=== PATIENT | male | born 1945 | race Caucasian/White ===

== ENCOUNTER → 2016-09-15 | Outpatient (CLI) | payer MEDICARE, OTHER | LOC: RAD 13:26 | PROVIDERS: ATTEND Internal Medicine Cardiovascular Disease | DX: I10 Essential (primary) hypertension (principal); I50.9 Heart failure, unspecified | CPT/HCPCS: 93306 ==

== ENCOUNTER 2016-12-05 11:47 | Emergency (ER) | payer MEDICARE, OTHER ==
[~2016-12-05] VITALS: Ht 182.9 cm; Wt 82.0 kg
[~2016-12-05 11:47] MED LIST: AMIO200T2 PO; ASP81CT; ATOR40TA59 PO; AZTH250C PO; CLOP75TA28 PO; CPR500T; CYAN500T44 PO; FAMO-118 PO; FELO10TA3; FURO40TA4 PO; HYDR-3881; LEVO500T16 PO; LISI5TAB14 PO; METF500T4 PO; METO-270 PO; METO50TA7; OXYC5TAB71 PO; POTA-57 PO; SIMV40TA; SPRN25T PO; TELM1TAB3; ZLP10T PO
--- OUTSIDE RECORDS SUMMARY | 2016-12-05 11:52 | XMS REPORT | Continuity of Care Document ---
Author Author [facility] Address Unknown Phone Unavailable Allergies Active Description Code Type Severity Reaction Onset Reported/Identified Relationship to Patient Clinical Status Yes No Known Allergies No Known Allergies Drug Allergy Unknown N/A 08/18/2015 Yes No Known Drug Allergies No Known Drug Allergies Drug Allergy Unknown NONE 08/18/2015 Yes No Known Drug Allergies [id number] Drug Allergy Unknown N/ A 09/25/2015 Medications Problems Date Dx Coded Attending Type Code Diagnosis Diagnosed By 11/19/2012 Viridiana Marsh MD 185 MALIGN NEOPL PROSTATE 11/19/2012 Viridiana Marsh MD 250.00 DIAB SRINIVAS WO COMPL, TYPE II OR UNSPEC TYPE, NOT UN 11/19/2012 Viridiana Marsh MD 272.4 HYPERLIPIDEMIA NEC/NOS 11/19/2012 Viridiana Marsh MD 285.9 ANEMIA NOS 11/19/2012 Viridiana Marsh MD 401.9 HYPERTENSION NOS 11/19/2012 Viridiana Marsh MD 410.71 AC MYOCARDIAL INFARCT,SUBENDO INFARCT, INITIAL EPIS 11/19/2012 Viridiana Marsh MD 414.01 CORONARY ATHEROSCLEROSIS OF [place] CORONARY VESSEL 11/19/2012 Viridiana Marsh MD 426.4 RT BUNDLE BRANCH BLOCK 11/19/2012 Viridiana Marsh MD 607.84 IMPOTENCE, ORGANIC ORIGN 11/19/2012 Viridiana Marsh MD 997.1 SURG COMPL-HEART 11/19/2012 Viridiana Marsh MD E849.7 ACCID IN RESIDENT INSTIT 11/19/2012 Viridiana Marsh MD E878.6 ABN REAC-ORGAN REM NEC 11/19/2012 Viridiana Marsh MD V12.51 HX-VENOUS THROMBOSIS EMBOLISM 11/19/2012 Viridiana Marsh MD V16.42 FAM HX-MAL NEOP-PROSTATE 11/19/2012 Viridiana Marsh MD V45.82 PERCUTANEOUS TRANSLUM CORON ANGIOPLASTY STATUS 01/27/2013 Ot 786.52 PAINFUL RESPIRATION 01/27/2013 Ot 786.59 CHEST PAIN NEC 09/19/2013 WILL PERDOMO, KELLI P Ot 372.30 CONJUNCTIVITIS NOS 09/19/2013 KELLI SOLIS MD Ot 379.93 REDNESS/DISCHARGE OF EYE 11/27/2013 GISSELL KAY MD, RAUL Danielson 715.16 LOC PRIM OSTEOART-L/LEG 11/27/2013 RAUL BORRERO II, MD V43.65 KNEE JOINT REPLACEMENT 11/27/2013 RAUL BORRERO II, MD V58.61 ANTICOAGULANT USE LONG T 12/04/2013 RAUL BORRERO II, MD 715.16 LOC PRIM OSTEOART-L/LEG 12/04/2013 RAUL BORRERO II, MD V43.65 KNEE JOINT REPLACEMENT 12/04/2013 RALU BORRERO II, MD V58.61 ANTICOAGULANT USE LONG T 12/11/2013 RAUL BORRERO II, MD 715.16 LOC PRIM OSTEOART-L/LEG 12/11/2013 RAUL BORRERO II, MD V43.65 KNEE JOINT REPLACEMENT 12/11/2013 RAUL BORRERO II, MD V58.61 ANTICOAGULANT USE LONG T 12/18/2013 RAUL BORRERO II, MD 715.16 LOC PRIM OSTEOART-L/LEG 12/18/2013 RAUL BORRERO II, MD V43.65 KNEE JOINT REPLACEMENT 12/18/2013 RAUL BORRERO II, MD V58.61 ANTICOAGULANT USE LONG T 12/21/2013 RAUL BORRERO II, MD 719.7 DIFFICULTY IN WALKING 12/21/2013 RAUL BORRERO II, MD 728.87 MUSCLE WEAKNESS 12/21/2013 RAUL BORRERO II, MD V43.65 KNEE JOINT REPLACEMENT 01/20/2014 RAUL BORRERO II, MD 719.7 DIFFICULTY IN WALKING 01/20/2014 RAUL BORRERO II, MD V43.65 KNEE JOINT REPLACEMENT 04/08/2014 BAILEE PERDOMO, JESSICA Atkinson Ot 250.00 DIAB SRINIVAS WO COMPL, TYPE II OR UNSPEC TY 04/08/2014 BAILEE PERDOMO, JESSICA Atkinson Ot 729.5 PAIN IN LIMB 04/08/2014 JESSICA MOROCHO MD Ot 729.81 SWELLING OF LIMB 04/08/2014 JESSICA MOROCHO MD Ot V12.51 HX-VENOUS THROMBOSIS EMBOLISM 04/08/2014 JESSICA MOROCHO MD Ot V58.66 LONG-TERM (CURRENT) USE OF ASPIRIN 08/31/2014 JACOB PERDOMO, DARSHAN Burks Ot 250.02 DIAB SRINIVAS WO COMPL, TYPE II OR UNSPEC TY 08/31/2014 JACOB PERDOMO, DARSHAN Burks Ot 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 06/16/2015 FRIDA JOSÉ DO Ot 414.00 06/16/2015 FRIDA JOSÉ DO Ot V81.2 06/16/2015 JESSICA MOROCHO MD Ot 453.40 06/16/2015 DARSHAN JAMES MD Ot 250.02 06/16/2015 DARSHAN JAMES MD Ot V65.3 06/16/2015 ANDREW TEMPLE MD S Ot E78.5 07/09/2015 ANDREW TEMPLE MD S Ot E78.5 08/23/2015 Ot E11.9 TYPE 2 DIABETES MELLITUS WITHOUT COMPLIC 08/23/2015 Ot I10 ESSENTIAL (PRIMARY) HYPERTENSION 08/23/[address] ELEVATION (STEMI) MYOCARDIAL INFARCTI 08/23/2015 Ot R07.89 OTHER CHEST PAIN 08/23/2015 Ot Z95.818 PRESENCE OF OTHER CARDIAC IMPLANTS AND G 09/04/2015 ANDREW TEMPLE I2109 STEMI involving oth coronary artery of anterior wall 09/04/[address] elevation (STEMI) myocardial infarction of [facility] site 09/05/2015 ANDREW TEMPLE E1165 Type 2 diabetes mellitus with hyperglycemia 09/05/2015 ANDREW TEMPLE E785 Hyperlipidemia, unspecified 09/05/2015 ANDREW TEMPLE I10 Essential (primary) hypertension 09/05/2015 ANDREW TEMPLE I2109 STEMI involving oth coronary artery of anterior wall 09/05/[address] elevation (STEMI) myocardial infarction of [facility] site 09/05/2015 ANDREW TEMPLE [id number] Athscl heart disease of [place] cor art w [facility] ang pctrs 09/05/2015 ANDREW TEMPLE K7200 Acute and subacute hepatic failure without coma 09/05/2015 ANDREW TEMPLE N179 Acute kidney failure, unspecified 09/05/2015 ANDREW TEMPLE R570 Cardiogenic shock 09/05/2015 ANDREW TEMPLE Z8546 Personal history of malignant neoplasm of prostate 09/05/2015 ANDREW TEMPLE Z955 Presence of coronary angioplasty implant and graft 09/18/2015 Ot I21.3 09/25/2015 JACOB PERDOMO, DARSHAN Burks Ot 250.02 09/25/2015 JACOB PERDOMO, DARSHAN Burks Ot V65.3 09/25/2015 CEDRIC SARGENT DO Ot E11.9 TYPE 2 DIABETES MELLITUS WITHOUT COMPLIC 09/25/2015 CEDRIC SARGENT DO Ot I10 ESSENTIAL (PRIMARY) HYPERTENSION 09/25/2015 CEDRIC SARGENT DO, Ot I25.10 ATHSCL HEART DISEASE OF [place] CORONARY 09/25/2015 CEDRIC SARGENT DO, Ot I50.9 HEART FAILURE, UNSPECIFIED 09/25/2015 CEDRIC SARGENT DO, Ot J18.9 PNEUMONIA, UNSPECIFIED ORGANISM 09/25/2015 CEDRIC SARGENT DO Ot R07.89 OTHER CHEST PAIN 09/25/2015 CEDRIC SARGENT DO, Ot Z95.5 PRESENCE OF CORONARY ANGIOPLASTY IMPLANT 11/04/2015 JESUS OMER E119 Type 2 diabetes mellitus without complications 11/04/2015 JESUS OMER E785 Hyperlipidemia, unspecified 11/04/2015 JESUS OMER I129 Hypertensive chronic kidney disease w stg 1-4/ unsp chr kdny 11/04/2015 JESUS OMER I2510 Athscl heart disease of [place] coronary artery w/o ang pctrs 11/04/2015 JESUS OMER I4519 Other right bundle-branch block 11/04/2015 JESUS OMER I5023 Acute on chronic systolic (congestive) heart failure 11/04/2015 JESUS OMER I509 Heart failure, unspecified 11/04/2015 JESUS OMER K219 Gastro-esophageal reflux disease without esophagitis 11/04/2015 JESUS OMER N183 Chronic kidney disease, stage 3 (moderate) 11/04/2015 JESUS OMER Z794 [facility] (current) use of insulin 11/04/2015 JESUS OMER Z955 Presence of coronary angioplasty implant and graft 12/01/2015 ANDREW TEMPLE MD S Ot I50.42 CHRONIC COMBINED SYSTOLIC AND DIASTOLIC 12/01/2015 ANDREW TEMPLE MD S Ot I50.42 CHRONIC COMBINED SYSTOLIC AND DIASTOLIC 12/05/2015 ANDREW TEMPLE MD S Ot I50.42 CHRONIC COMBINED SYSTOLIC AND DIASTOLIC 12/09/2015 ANDREW TEMPLE MD S Ot I50.42 CHRONIC COMBINED SYSTOLIC AND DIASTOLIC 12/25/2015 ANDREW TEMPLE MD S Ot I50.42 CHRONIC COMBINED SYSTOLIC AND DIASTOLIC 03/21/2016 NIXON PERDOMO, SUKUMAR Ot J22 UNSPECIFIED ACUTE LOWER RESPIRATORY INFE 03/21/2016 NIXON PERDOMO, SUKUMAR Ot R07.89 OTHER CHEST PAIN 03/21/2016 NIXON PERDOMO, SUKUMAR Ot R09.1 PLEURISY 03/25/2016 NIXON PERDOMO, SUKUMAR Ot J22 UNSPECIFIED ACUTE LOWER RESPIRATORY INFE 03/25/2016 NIXON PERDOMO, SUKUMAR Ot R07.89 OTHER CHEST PAIN 03/25/2016 NIXON PERDOMO, SUKUMAR Ot R09.1 PLEURISY 03/27/2016 NIXON PERDOMO, SUKUMAR Ot J22 UNSPECIFIED ACUTE LOWER RESPIRATORY INFE 03/27/2016 NIXON PERDOMO, SUKUMAR Ot R07.89 OTHER CHEST PAIN 03/27/2016 NIXON PERDOMO, SUKUMAR Ot R09.1 PLEURISY 09/15/2016 WINDY PERDOMO, ANDREW Simons Ot I10 ESSENTIAL (PRIMARY) HYPERTENSION 09/15/2016 FRIDA JOSÉ DO Ot 414.00 CORON ATHEROSCLER NOS TYPE VESSEL, NATIV 09/15/2016 FRIDA JOSÉ DO Ot V81.2 SCREEN-CARDIOVASC NEC 09/15/2016 BAILEE PERDOMO, JESSICA Atkinson Ot 453.40 ACUTE VENOUS EMBOLISM THROMBOSIS UNSP 09/15/2016 JACOB PERDOMO, DASRHAN Burks Ot 250.02 DIAB SRINIVAS WO COMPL, TYPE II OR UNSPEC TY 09/15/2016 JACOB PERDOMO, DARSHAN Burks Ot 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 09/15/2016 ANDREW TEMPLE MD Ot E78.5 HYPERLIPIDEMIA, UNSPECIFIED 09/15/[address] ELEVATION (STEMI) MYOCARDIAL INFARCTI 09/15/2016 MATTAR MD, COSTY S Ot I50.42 CHRONIC COMBINED SYSTOLIC AND DIASTOLIC 09/15/2016 WINDY PERDOMO COSTRachid S Ot I10 ESSENTIAL (PRIMARY) HYPERTENSION 09/16/2016 WINDY PERDOMO COSTRachid S Ot I10 ESSENTIAL (PRIMARY) HYPERTENSION 09/22/2016 WINDY PERDOMO COSTRachid S Ot I10 ESSENTIAL (PRIMARY) HYPERTENSION 09/22/2016 ANDREW TEMPLE MD S Ot I50.9 HEART FAILURE, UNSPECIFIED 09/26/2016 ANDREW TEMPLE MD S Ot I10 ESSENTIAL (PRIMARY) HYPERTENSION 09/26/2016 ANDREW TEMPLE MD S Ot I50.9 HEART FAILURE, UNSPECIFIED 10/11/2016 ANDREW TEMPLE MD S Ot I10 ESSENTIAL (PRIMARY) HYPERTENSION 10/11/2016 ANDREW TEMPLE MD S Ot I50.9 HEART FAILURE, UNSPECIFIED 11/29/2016 ANDREW TEMPLE MD S Ot I10 ESSENTIAL (PRIMARY) HYPERTENSION 11/29/2016 ANDREW TEMPLE MD S Ot I50.9 HEART FAILURE, UNSPECIFIED Procedures Code Description Performed By Performed On LAPAROSCOPIC ROBOTIC ASSISTED PROCEDURE Salma PERODMO, Viridiana Erickson 11/19/2012 40.29 SIMP EXC LYMPH STRUC ASHELY Marsh MD, Viridiana Erickson 11/19/2012 60.5 RADICAL PROSTATECTOMY Viridiana Marsh MD 11/19/2012 60.69 PROSTATECTOMY Viridiana Montgomery MD 11/19/2012 78896 PT EVALUATION RAUL BORRERO II, MD 11/25/2013 47401 THERAPEUTIC EXERCISES RAUL BORRERO II, MD 11/25/2013 63865 GAIT TRAINING THERAPY RAUL BORRERO II, MD 11/25/2013 22459 ROUTINE VENIPUNCTURE RAUL BORRERO II, MD 11/27/2013 62012 PROTHROMBIN TIME RAUL BORRERO II, MD 11/27/2013 67782 THERAPEUTIC EXERCISES RAUL BORRERO II, MD 11/27/2013 35070 THERAPEUTIC EXERCISES RAUL BORRERO II, MD 11/29/2013 18405 GAIT TRAINING THERAPY RAUL BORRERO II, MD 11/29/2013 75357 THERAPEUTIC EXERCISES RAUL BORRERO II, MD 12/02/2013 G0283 ELEC STIM OTHER THAN WOUND RAUL BORRERO II, MD 12/02/2013 96815 ROUTINE VENIPUNCTURE RAUL BORRERO II, MD R 12/04/2013 58259 PROTHROMBIN TIME GISSELL KAY MD, [facility] 12/04/2013 23451 THERAPEUTIC EXERCISES GISSELL KAY MD, [facility] 12/04/2013 G0283 ELEC STIM OTHER THAN WOUND GISSELL KAY MD, [facility] 12/04/2013 07333 THERAPEUTIC EXERCISES GISSELL KAY MD, [facility] 12/06/2013 26483 THERAPEUTIC ACTIVITIES GISSELL KAY MD , RAUL Shaun 12/06/2013 G0283 ELEC STIM OTHER THAN WOUND GISSELL KAY MD, [facility] 12/06/2013 13064 THERAPEUTIC EXERCISES GISSELL KAY MD, [facility] 12/09/2013 G0283 ELEC STIM OTHER THAN WOUND GISSELL KAY MD, [facility] 12/09/2013 61046 PROTHROMBIN TIME GISSELL KAY MD, [facility] 12/11/2013 22586 THERAPEUTIC EXERCISES GISSELL KAY MD, [facility] 12/11/2013 52037 MANUAL THERAPY GISSELL KAY MD, [facility] 12/11/2013 G0283 ELEC STIM OTHER THAN WOUND GISSELL KAY MD, [facility] 12/11/2013 18900 ROUTINE VENIPUNCTURE GISSELL KAY MD, [facility] 12/18/2013 68944 PROTHROMBIN TIME GISSELL KAY MD, [facility] 12/18/2013 26925 THERAPEUTIC EXERCISES GISSELL KAY MD, [facility] 12/18/2013 G0283 ELEC STIM OTHER THAN WOUND GISSELL KAY MD, [facility] 12/18/2013 84464 THERAPEUTIC EXERCISES GISSELL KAY MD, [facility] 12/20/2013 G0283 ELEC STIM OTHER THAN WOUND GISSELL KAY MD, [facility] 12/20/2013 22862 THERAPEUTIC EXERCISES GISSELL KAY MD, RAUL Shaun 12/24/2013 G0283 ELEC STIM OTHER THAN WOUND GISSELL KAY MD, [facility] 12/24/2013 55534 THERAPEUTIC EXERCISES GISSELL KAY MD, [facility] 12/26/2013 G0283 ELEC STIM OTHER THAN WOUND GISSELL KAY MD, [facility] 12/26/2013 49850 THERAPEUTIC EXERCISES GISSELL KAY MD, [facility] 12/30/2013 68195 MANUAL THERAPY GISSELL KAY MD, RAUL Shaun 12/30/2013 G0283 ELEC STIM OTHER THAN WOUND GISSELL KAY MD, [facility] 12/30/2013 83349 THERAPEUTIC EXERCISES GISSELL KAY MD, [facility] 01/02/2014 G0283 ELEC STIM OTHER THAN WOUND GISSELL KAY MD, RAUL Dunn 01/02/2014 [id number] 08/24/2015 [id number] 08/24/2015 [id number] 08/24/2015 [id number] 08/24/2015 [id number] 08/24/2015 [id number] 08/24/2015 Results Test Result Range CBC - 11/14/12 10:56 MEAN CELL HGB 28.7 pg 27.0-33.0 MEAN CELL HGB CONCENTRATION 35.3 g/dL 32.0-37.0 MEAN CELL VOLUME 81.4 fl 80.0-100.0 RED BLOOD CELL 5.05 m/cumm 4.00-6.00 RED CELL DISTRIBUTION WIDTH 12.8 % 11.0- 15.6 WHITE BLOOD CELL 5.3 k/cumm 5.0-10.0 HEMOGLOBIN 14.5 gm/dL 14.0-18.0 HEMATOCRIT 41.1 % 40.0-54.0 PLATELET COUNT 150 k/cumm 150-400 METABOLIC PANEL, BASIC - 11/14/12 10:56 POTASSIUM 3.8 mmol/L 3.5-5.3 EST GFR (MDRD) > 60 mL/min > 59 ANION GAP 11 mmol/L 5-15 EST CrCl (CG) > 60 mL/min > 59 GLUCOSE 161 mg/dL 70-99 CALCIUM 8.7 mg/dL 8.5-10.1 BLOOD UREA NITROGEN 14 mg/dL 7-20 CREATININE 1.0 mg/dL 0.8-1.3 SODIUM 141 mmol/L 135-148 CHLORIDE 107 mmol/L 98-110 CARBON DIOXIDE 23 mmol/L 21-32 GLUCOSE (POC) - 11/19/12 05:51 GLUCOSE (POC) 140 mg/dL 70-99 URINALYSIS, ROUTINE - 11/19/12 09:20 UA LEUKOCYTE ESTERASE DIPSTICK NEGATIVE NEGATIVE UA NITRITE DIPSTICK NEGATIVE NEGATIVE UA PROTEIN DIPSTICK NEGATIVE NEGATIVE UA GLUCOSE DIPSTICK NEGATIVE NEGATIVE UA KETONE DIPSTICK 1+ NEGATIVE UA UROBILINOGEN DIPSTICK NORMAL NORMAL UA BILIRUBIN DIPSTICK NEGATIVE NEGATIVE UA BLOOD DIPSTICK NEGATIVE NEGATIVE UA VOLUME FOR EXAM 12.0 mL (12mL STD) UA SPECIFIC GRAVITY 1.019 1.015-1.025 UR PH 7.0 5.0-7.0 URINE CULTURE - 11/19/12 09:20 Uncategorized GLUCOSE (POC) - 11/19/12 10:05 GLUCOSE (POC) 187 mg/dL 70-99 CREATINE KINASE (CK/CPK) - 11/19/12 15:54 CREATINE KINASE (CK/CPK) 188 Units/L < 309 CK MB - 11/19/12 15:54 CK MB 16.5 ng/mL < 4.0 TROPONIN I - 11/19/12 15:54 TROPONIN I 1.88 ng/mL < 0.07 GLUCOSE (POC) - 11/19/12 15:59 GLUCOSE (POC) 216 mg/dL 70-99 GLUCOSE (POC) - 11/19/12 21:26 GLUCOSE (POC) 208 mg/dL 70-99 CREATINE KINASE (CK/CPK) - 11/19/12 22:15 CREATINE KINASE (CK/CPK) 398 Units/L < 309 CK MB - 11/19/12 22:15 CK MB 34.5 ng/mL < 4.0 TROPONIN I - 11/19/12 22:15 TROPONIN I 11.10 ng/mL < 0.07 GLUCOSE (POC) - 11/20/12 05:31 GLUCOSE (POC) 134 mg/dL 70-99 FLUID CREATININE - 11/20/12 05:40 FLUID CREATININE 1.1 mg/dL NOT DEFINED CBC - 11/20/12 08:07 MEAN CELL HGB 28.6 pg 27.0-33.0 MEAN CELL HGB CONCENTRATION 34.2 g/dL 32.0-37.0 MEAN CELL VOLUME 83.6 fl 80.0-100.0 RED BLOOD CELL 4.44 m/cumm 4.00-6.00 RED CELL DISTRIBUTION WIDTH 13.0 % 11.0- 15.6 WHITE BLOOD CELL 7.4 k/cumm 5.0-10.0 HEMOGLOBIN 12.7 gm/dL 14.0-18.0 HEMATOCRIT 37.1 % 40.0-54.0 PLATELET COUNT 125 k/cumm 150-400 METABOLIC PANEL, BASIC - 11/20/12 08:07 POTASSIUM 4.1 mmol/L 3.5-5.3 EST GFR (MDRD) > 60 mL/min > 59 ANION GAP 8 mmol/L 5-15 EST CrCl (CG) > 60 mL/min > 59 GLUCOSE 154 mg/dL 70-99 CALCIUM 8.1 mg/dL 8.5-10.1 BLOOD UREA NITROGEN 16 mg/dL 7-20 CREATININE 1.2 mg/dL 0.8-1.3 SODIUM 136 mmol/L 135-148 CHLORIDE 103 mmol/L 98-110 CARBON DIOXIDE 25 mmol/L 32 MAGNESIUM - 11/20/12 08:08 MAGNESIUM 2.0 mg/dL 1.8-2.4 CREATINE KINASE (CK/CPK) - 11/20/12 08:08 CREATINE KINASE (CK/CPK) 497 Units/L < 309 CK MB - 11/20/12 08:08 CK MB 29.2 ng/mL < 4.0 TROPONIN I - 11/20/12 08:08 TROPONIN I 7.24 ng/mL < 0.07 GLUCOSE (POC) - 11/20/12 09:27 GLUCOSE (POC) 230 mg/dL 70-99 GLUCOSE (POC) - 11/20/12 15:14 GLUCOSE (POC) 230 mg/dL 70-99 CREATINE KINASE (CK/CPK) - 11/20/12 15:18 CREATINE KINASE (CK/CPK) 541 Units/L < 309 CK MB - 11/20/12 15:18 CK MB 20.9 ng/mL < 4.0 TROPONIN I - 11/20/12 15:18 TROPONIN I 5.05 ng/mL < 0.07 GLUCOSE (POC) - 11/20/12 18:04 GLUCOSE (POC) 143 mg/dL 70-99 GLUCOSE (POC) - 11/20/12 21:12 GLUCOSE (POC) 155 mg/dL 70-99 METABOLIC PANEL, BASIC - 11/21/12 04:53 POTASSIUM 4.1 mmol/L 3.5-5.3 EST GFR (MDRD) > 60 mL/min > 59 ANION GAP 7 mmol/L 5-15 EST CrCl (CG) > 60 mL/min > 59 GLUCOSE 113 mg/dL 70-99 CALCIUM 8.1 mg/dL 8.5-10.1 BLOOD UREA NITROGEN 18 mg/dL 7-20 CREATININE 1.2 mg/dL 0.8-1.3 SODIUM 136 mmol/L 135-148 CHLORIDE 104 mmol/L 98-110 CARBON DIOXIDE 25 mmol/L 32 LIPID PANEL - 11/21/12 04:53 CHOLESTEROL/HDL RATIO 2.8 < 5.0 LDL CHOLESTEROL 31 mg/dL < 100 VLDL CHOLESTEROL 19 mg/dL < 30 TRIGLYCERIDES 94 mg/dL < 150 CHOLESTEROL 78 mg/dL < 200 HDL CHOLESTEROL 28 mg/dL > 39 CBC - 11/21/12 04:53 MEAN CELL HGB 28.1 pg 27.0-33.0 MEAN CELL HGB CONCENTRATION 33.6 g/dL 32.0-37.0 MEAN CELL VOLUME 83.6 fl 80.0-100.0 RED BLOOD CELL 3.91 m/cumm 4.00-6.00 RED CELL DISTRIBUTION WIDTH 13.1 % 11.0- 15.6 WHITE BLOOD CELL 6.1 k/cumm 5.0-10.0 HEMOGLOBIN 11.0 gm/dL 14.0-18.0 HEMATOCRIT 32.7 % 40.0-54.0 PLATELET COUNT 106 k/cumm 150-400 GLUCOSE (POC) - 11/21/12 05:45 GLUCOSE (POC) 121 mg/dL 70-99 GLUCOSE (POC) - 11/21/12 09:55 GLUCOSE (POC) 209 mg/dL 70-99 GLUCOSE (POC) - 11/21/12 14:56 GLUCOSE (POC) 162 mg/dL 70-99 Protime - 11/27/13 13:28 INR 1.3 Protime 14.3 SEC 9.8-12.4 Protime - 12/04/13 14:04 INR 1.2 Protime 12.6 SEC 9.8-12.4 Protime - 12/11/13 15:45 INR 1.3 Protime 13.8 SEC 9.8-12.4 Protime - 12/18/13 10:40 INR 1.8 Protime 19.9 SEC 9.8-12.4 CBC - 08/18/15 11:21 MEAN CELL HGB 28.7 pg 27.0-33.0 MEAN CELL HGB CONCENTRATION 35.6 g/dL 32.0-37.0 MEAN CELL VOLUME 80.7 fl 80.0-100.0 RED BLOOD CELL 4.98 m/cumm 4.00-6.00 RED CELL DISTRIBUTION WIDTH 13.0 % 11.0- 15.6 WHITE BLOOD CELL 6.2 k/cumm 5.0-10.0 HEMOGLOBIN 14.3 gm/dL 14.0-18.0 HEMATOCRIT 40.2 % 40.0-54.0 PLATELET COUNT 138 k/cumm 150-400 METABOLIC PANEL, BASIC - 08/18/15 11:21 POTASSIUM 3.8 mmol/L 3.5-5.3 EST GFR (MDRD) > 60 mL/min > 59 ANION GAP 10 mmol/L 5-15 GLUCOSE 220 mg/dL 70-99 CALCIUM 7.9 mg/dL 8.5-10.1 BLOOD UREA NITROGEN 15 mg/dL 7-20 CREATININE 0.9 mg/dL 0.7-1.3 SODIUM 139 mmol/L 135-148 CHLORIDE 105 mmol/L 98-110 CARBON DIOXIDE 24 mmol/L 21-32 Complete blood count (CBC) with automated white blood cell (WBC) differential - 03/20/16 23:00 Blood automated leukocyte count 6.43 4.0 -11.0 Erythrocytes 3.37 4.50-5.50 12.0-16.0;g/dL 9.3 13.5-17.0 Hematocrit 28.10 39.00-50.00 Automated erythrocyte mean corpuscular volume 83 80-100 Mean corpuscular hemoglobin (MCH) determination 27.6 26.0-34.0 Automated erythrocyte mean corpuscular hemoglobin concentration measurement ( mass/volume) 33.1 31.0-37.0 Erythrocyte distribution width 13.2 11.8 -15.6 Automated blood platelet count 217 150- 450 Automated blood platelet mean volume measurement 10.3 6.0-9.5 Automated neutrophil percentage 73 51- 67 Lymphocytes/100 leukocytes 12 20-46 Automated monocyte percentage 12 3-11 Eosinophil count auto 2 0-4 Automated basophil percentage 1 0-2 Automated blood neutrophil count 4.7 Blood lymphocytes count (number/volume) 0.8 Automated blood monocyte count 0.8 Blood absolute eosinophil count 0.2 Basophils 0.0 Comprehensive metabolic panel - 03/20/16 23:00 Sodium measurement 160 70-110 Carbon dioxide measurement 26 22-29 Serum or plasma anion gap 20.4 3-15 BLOOD UREA NITROGEN 45 7-18 CREATININE SERUM 1.96 0.8-1.5 Brucella species antibody panel (IgG, IgM) 23 10-20 Estimated glomerular filtration rate (GFR) 41.1 Estimated glomerular filtration rate (GFR) non- 34.0 OSMOLALITY,CALCULATED 294 280-300 CALCIUM 8.8 8.8-10.8 Calculated ionized calcium measurement 3.9 3.8-4.6 BILIRUBIN,TOTAL 0.8 0.1-1.0 Serum or plasma alkaline phosphatase measurement 112 38-126 ASPARTATE AMINO TRANSFERASE 15 15-37 ALANINE AMINOTRANSFERASE 24 30-65 Serum or plasma total protein measurement 6.9 6.4-8.5 Serum or plasma albumin measurement 4.0 3.4-5.0 Serum or plasma albumin/globulin mass ratio 1.379 1.1-1.8 TROPONIN I* - 03/20/16 23:00 TROPONIN I 0.015 0.010-0.080 NT-Pro BNP - 03/20/16 23:00 NT-Pro BNP 5730 0-125 C REACTIVE PROTEIN* - 03/20/16 23:00 C REACTIVE PROTEIN* 7.10 0.0-0.9 Encounters ACCT No. Visit Date/Time Discharge Status Pt. Type Provider Facility Loc./Unit Complaint [id number] 01/21/2014 00:01:00 2013 23:59:00 DIS Outpatient RAUL BORRERO II, MD [id number] 12/22/2013 00:01:00 2013 23:59:00 DIS Outpatient RAUL BORRERO II, MD [id number] 11/25/2013 14:12:00 2013 23:59:00 DIS Outpatient RAUL BORRERO II, MD [id number] 12/18/2013 10:44:00 12/18/2013 10:44:00 DIS Outpatient GISSELL KAY MD, [facility] [id number] 12/11/2013 15:45:00 12/11/2013 15:45:00 MATTHEW Outpatient GISSELL KAY MD, [facility] [id number] 12/04/2013 14:04:00 12/04/2013 14:04:00 DIS Outpatient GISSELL KAY MD, [facility] [id number] 11/27/2013 13:48:00 11/27/2013 13:48:00 MATTHEW Outpatient GISSELL KAY MD, [facility] [id number] 11/27/2013 13:47:00 11/27/2013 13:47:00 CAN Outpatient GISSELL KAY MD, [facility]
--- OUTSIDE RECORDS SUMMARY | 2016-12-05 11:54 | XMS REPORT | Continuity of Care Document ---
Author Author [facility] Organization [facility] Address Unknown Phone Unavailable Allergies Active Description Code Type Severity Reaction Onset Reported/Identified Relationship to Patient Clinical Status Yes No Known Allergies No Known Allergies Drug Allergy Unknown N/A 08/18/2015 Yes No Known Drug Allergies No Known Drug Allergies Drug Allergy Unknown NONE 08/18/2015 Yes No Known Drug Allergies [id number] Drug Allergy Unknown N/ A 09/25/2015 Medications [...] Viridiana Marsh MD 414.01 CORONARY ATHEROSCLEROSIS OF [place] CORONARY VESSEL 11/19/2012 Viridiana Marsh MD 426.4 [...] II, MD V43.65 KNEE JOINT REPLACEMENT 12/04/2013 RAUL BORRERO II, MD V58.61 ANTICOAGULANT USE [...] JACOB PERDOMO, DARSHAN Burks Ot 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 06/16/2015 FRIDA JOSÉ DO Ot 414.00 06/16/2015 [...] I213 ST elevation (STEMI) myocardial infarction of [facility] site 09/05/2015 ANDREW TEMPLE E1165 Type 2 diabetes mellitus with hyperglycemia 09/05/2015 ANDREW TEMPLE E785 Hyperlipidemia, unspecified 09/05/2015 ANDREW TEMPLE I10 Essential (primary) hypertension 09/05/2015 ANDREW TEMPLE I2109 STEMI involving oth coronary artery of anterior wall 09/05/[address] elevation (STEMI) myocardial infarction of [facility] site 09/05/2015 ANDREW TEMPLE 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 09/05/2015 ANDREW TEMPLE K7200 Acute [...] DO, Ot I25.10 ATHSCL HEART DISEASE OF [place] CORONARY 09/25/2015 CEDRIC SARGENT DO, Ot I50.9 [...] JESUS OMER 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 11/04/2015 JESUS OMER I4519 Other right bundle-branch block 11/04/2015 JESUS OMER I5023 Acute on chronic systolic (congestive) heart failure 11/04/2015 JESUS OMER I509 Heart failure, unspecified 11/04/2015 JESUS OMER K219 Gastro-esophageal reflux disease without esophagitis 11/04/2015 JESUS OMER N183 Chronic kidney disease, stage 3 (moderate) 11/04/2015 JESUS OMER Z794 residential (current) use of insulin 11/04/2015 JESUS OMER [...] VENOUS EMBOLISM THROMBOSIS UNSP 09/15/2016 JACOB PERDOMO, DARSHAN Burks Ot 250.02 DIAB SRINIVAS WO COMPL, TYPE II OR UNSPEC TY 09/15/2016 JACOB PERDOMO, DARSHAN Burks Ot 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 09/15/2016 ANDREW TEMPLE MD Ot E78.5 HYPERLIPIDEMIA, [...] Performed On LAPAROSCOPIC ROBOTIC ASSISTED PROCEDURE Salma PERDOMO, Viridiana Erickson 11/19/2012 40.29 SIMP EXC LYMPH STRUC ASHELY Marsh MD, Viridiana Erickson 11/19/2012 60.5 RADICAL PROSTATECTOMY Viridiana Marsh MD 11/19/2012 60.69 PROSTATECTOMY Viridiana Montgomery MD 11/19/2012 21747 PT EVALUATION RAUL BORRERO II, MD 11/25/2013 28330 THERAPEUTIC EXERCISES RAUL BORRERO II, MD 11/25/2013 67863 GAIT TRAINING THERAPY RAUL BORRERO II, MD 11/25/2013 48759 ROUTINE VENIPUNCTURE RAUL BORRERO II, MD 11/27/2013 80474 PROTHROMBIN TIME RAUL BORRERO II, MD 11/27/2013 37261 THERAPEUTIC EXERCISES RAUL BORRERO II, MD 11/27/2013 70404 THERAPEUTIC EXERCISES RAUL BORRERO II, MD 11/29/2013 97311 GAIT TRAINING THERAPY RAUL BORRERO II, MD 11/29/2013 89974 THERAPEUTIC EXERCISES RAUL BORRERO II, MD 12/02/2013 G0283 ELEC STIM OTHER THAN WOUND RAUL BORRERO II, MD 12/02/2013 09421 ROUTINE VENIPUNCTURE RAUL BORRERO II, MD R 12/04/2013 80993 PROTHROMBIN TIME GISSELL KAY MD, [facility] 12/04/2013 64222 THERAPEUTIC EXERCISES GISSELL KAY MD, [facility] 12/04/2013 G0283 ELEC STIM OTHER THAN WOUND GISSELL KAY MD, [facility] 12/04/2013 55603 THERAPEUTIC EXERCISES GISSELL KAY MD, [facility] 12/06/2013 74725 THERAPEUTIC ACTIVITIES GISSELL KAY MD , RAUL Shaun 12/06/2013 G0283 ELEC STIM OTHER THAN WOUND GISSELL KAY MD, [facility] 12/06/2013 22812 THERAPEUTIC EXERCISES GISSELL KAY MD, [facility] 12/09/2013 G0283 ELEC STIM OTHER THAN WOUND GISSELL KAY MD, [facility] 12/09/2013 40508 PROTHROMBIN TIME GISSELL KAY MD, [facility] 12/11/2013 81700 THERAPEUTIC EXERCISES GISSELL KAY MD, [facility] 12/11/2013 59716 MANUAL THERAPY GISSELL KAY MD, [facility] 12/11/2013 G0283 ELEC STIM OTHER THAN WOUND GISSELL KAY MD, [facility] 12/11/2013 79292 ROUTINE VENIPUNCTURE GISSELL KAY MD, [facility] 12/18/2013 99330 PROTHROMBIN TIME GISSELL KAY MD, [facility] 12/18/2013 18094 THERAPEUTIC EXERCISES GISSELL KAY MD, [facility] 12/18/2013 G0283 ELEC STIM OTHER THAN WOUND GISSELL KAY MD, [facility] 12/18/2013 48995 THERAPEUTIC EXERCISES GISSELL KAY MD, [facility] 12/20/2013 G0283 ELEC STIM OTHER THAN WOUND GISSELL KAY MD, [facility] 12/20/2013 20511 THERAPEUTIC EXERCISES GISSELL KAY MD, RAUL Shaun 12/24/2013 G0283 ELEC STIM OTHER THAN WOUND GISSELL KAY MD, [facility] 12/24/2013 43289 THERAPEUTIC EXERCISES GISSELL KAY MD, [facility] 12/26/2013 G0283 ELEC STIM OTHER THAN WOUND GISSELL KAY MD, [facility] 12/26/2013 30048 THERAPEUTIC EXERCISES GISSELL KAY MD, [facility] 12/30/2013 82432 MANUAL THERAPY GISSELL KAY MD, RAUL Shaun 12/30/2013 G0283 ELEC STIM OTHER THAN WOUND GISSELL KAY MD, [facility] 12/30/2013 32904 THERAPEUTIC EXERCISES GISSELL KAY MD, [facility] 01/02/2014 G0283 ELEC STIM OTHER THAN WOUND GISSELL KAY MD, RAUL Dunn 01/02/2014 [id number] 08/24/2015 [id number] 08/24/2015 [id number] 08/24/2015 [id number] 08/24/2015 [id number] 08/24/2015 [id number] 08/24/2015 Results Test Result Range CBC - [...] Status Pt. Type Provider Facility Loc./Unit Complaint [id number] 01/21/2014 00:01:00 2013 23:59:00 DIS Outpatient RAUL BORRERO II, MD [id number] 12/22/2013 00:01:00 2013 23:59:00 DIS Outpatient RAUL BORRERO II, MD [id number] 11/25/2013 14:12:00 2013 23:59:00 DIS Outpatient RAUL BORRERO II, MD [id number] 12/18/2013 10:44:00 12/18/2013 10:44:00 DIS Outpatient GISSELL KAY MD, [facility] [id number] 12/11/2013 15:45:00 12/11/2013 15:45:00 MATTHEW Outpatient GISSELL KAY MD, [facility] [id number] 12/04/2013 14:04:00 12/04/2013 14:04:00 DIS Outpatient GISSELL KAY MD, [facility] [id number] 11/27/2013 13:48:00 11/27/2013 13:48:00 MATTHEW Outpatient GISSELL KAY MD, [facility] [id number] 11/27/2013 13:47:00 11/27/2013 13:47:00 CAN Outpatient GISSELL KAY MD, [facility]
[2016-12-05] MEDS ORDERED: INSU100I10 SQ (12:14)
[2016-12-05 13:11] LABS: BILIRUBIN,URINE Negative (Negative); CLARITY,URINE Clear; COLOR,URINE Yellow; GLUCOSE, URINE (UA) Negative (Negative); LEUKOCYTE ESTERASE ,URINE Negative (Negative); UROBILINOGEN,URINE 0.2 mg/dL (0.2-1.0)
--- NOTE | 2016-12-05 13:16 | Diagnostic Imaging Report ---
PROCEDURE: CT abdomen and pelvis without contrast. TECHNIQUE: Multiple contiguous axial images were obtained through the abdomen and pelvis without the use of intravenous contrast. INDICATION: Intermittent abdominal pain. Rule out umbilical hernia. Comparison with 09/25/2008. FINDINGS: Large bilateral pleural effusions have developed with bibasilar atelectasis. There is cardiomegaly with dense coronary artery calcification. The liver appears normal. Gallbladder and bile ducts are normal. The pancreas and spleen appear normal. The adrenal glands are normal. Kidneys appear normal without obstruction or mass. Aorta and abdominal vessels are densely atherosclerotic without evidence of aneurysm. The stomach and small bowel are not distended. The colon shows normal stool and gas pattern. There is diverticulosis of the descending and sigmoid colon without evidence of diverticulitis. No pelvic masses. No intra-abdominal adenopathy. No free air or free fluid. There is noted small umbilical hernia which does contain some intra-abdominal fat. No evidence of incarcerated bowel within the hernia. Bone windows show no blastic or lytic lesions. IMPRESSION: 1. There is small umbilical hernia which contains intra-abdominal fat. No bowel within the hernia. This does not appear to have changed significantly in size since 2008. 2. Rather large bilateral pleural effusions with bibasilar atelectasis. Also, cardiomegaly with dense atherosclerotic disease with coronary arteries. These findings are consistent with probable congestive failure. Could not exclude underlying pneumonia. 3. Diverticulosis without evidence of diverticulitis. Dictated by: Dictated on workstation # [id number]
[2016-12-05 13:21] LABS: BASOPHILS % (AUTO) 0 % (0-2); EOSINOPHILS # (AUTO) 0.2 10^3uL; EOSINOPHILS % (AUTO) 4 % (0-4); LYMPHOCYTES # (AUTO) 0.5 X10^3; MEAN CORPUSCULAR VOLUME 84 FL (80-100); MEAN PLATELET VOLUME 10.4 FL (6.0-9.5); MONOCYTES # (AUTO) 0.5 X10^3; MONOCYTES % (AUTO) 9 % (3-11); NEUTROPHILS # (AUTO) 4.2 X10^3; NEUTROPHILS % (AUTO) 78 % (51-67); PLATELET COUNT 164 10^3uL (150-450); WHITE BLOOD COUNT 5.36 10^3uL (4.0-11.0)
[2016-12-05 13:23] LABS: MEAN CORPUSCULAR HEMOGLOBIN 26.8 PG (26.0-34.0)
[2016-12-05 13:32] LABS: ALBUMIN 3.8 g/dL (3.4-5.0); ALKALINE PHOSPHATASE 89 U/L (38-126); AMYLASE* 84 U/L (25-115); ANION GAP 14.1 MEQ/L (3-15); BUN/CREATININE RATIO 23 (10-20); LIPASE* 129 U/L (23-300); TOTAL PROTEIN 6.6 g/dL (6.4-8.5)
--- NOTE | 2016-12-05 13:58 | Diagnostic Imaging Report ---
INDICATION: Shortness of breath EXAMINATION: PA and lateral chest There is consolidation of left lung base with an effusion. This could be infiltrate and/or atelectasis. Right lung is clear. Heart size is normal. IMPRESSION: Left basilar consolidation with associated effusion could represent pneumonia. Dictated by: Dictated on workstation # [id number]
[2016-12-05 14:36] VITALS: BP 84/51
== END 2016-12-05 14:34 | disposition home or self-care (01) ==
LOC: ED 11:48
DX: K42.9 Umbilical hernia without obstruction or gangrene (principal); I25.10 Atherosclerotic heart disease of native coronary artery without angina pectoris
CPT/HCPCS: 36415; 71020; 74176; 80053; 81003; 82150; 83690; 85025; 85610; 86140; 99282; 99283